=== PATIENT | male | born 1985 ===

== ENCOUNTER 2016-07-19 10:54 | Day surgery (SDC) | payer SELFPAY ==
[2016-07-12 11:30] VITALS: BMI 27.4
[2016-07-19 11:32] VITALS: RESP 18
--- NOTE | 2016-07-19 11:59 | CP.SDSHP ---
Same Day Surgery H & P - History Proposed Procedure: Right Inguinal Hernia Repair, With Mesh Pre-Op Diagnosis: Right Inguinal Hernia - Previous Medical/Surgical History Pain: 2.Mild Pain Previous Surgical History: none - Allergies Allergies: Allergies No Known Allergies Allergy (Verified 05/17/16 18:20) - Physical Exam General Appearance: well nourished, nad Vital Signs: Vital Signs 07/19/16 07/19/16 11:30 11:34 Temperature 97.8 F Pulse Rate 65 65 Respiratory 18 Rate Blood Pressure 126/73 O2 Sat by Pulse 100 Oximetry Mental Status: Alert & Oriented x3 Neuro: WNL Heart: WNL Lungs: WNL GI: WNL - {Optional Preform as Required} Abdomen: Other (R inguinal hernia, reducible) - Impression Impression: 31yo M w/ Right inguinal hernia for repair today Pt. Evaluated Today:Candidate for Anesthesia & Procedure: Yes - Date & Time Date: 07/19/16 Time: 11:59 Short Stay Discharge - Short Stay Discharge Admitting Diagnosis/Reason for Visit: K40.90 Disposition: HOME/ ROUTINE Medications: oxyCODONE/Acetaminophen [Percocet 5/325 mg Tab] 1 ea PO Q4H PRN #20 tab PRN Reason: Pain, Moderate (4-7) Referrals: FAMILY PROVIDER,NO [Primary Care Provider] - Follow-up: F/U with Dr. Goodman in 1 week. Additional Instructions (Diet, Activity): You may remove dressing on Saturday and you may shower. Leave Steristrips in place. No bathing or soaking in pool/ocean. No heavy lifting >10lbs for at least 4 weeks. F/U with Dr. Goodman in office in 1 week.
[2016-07-19] MEDS ORDERED: Propofol 10 mg/ml Inj (20 ML) ONE (13:08)
[2016-07-19] MEDS ORDERED: Midazolam 2 MG/2 ML VIAL ONE (13:09)
[2016-07-19] MEDS ORDERED: Lactated Ringer's 1,000 ML IV ONE (13:20)
[2016-07-19] MEDS: HYDROmorphone 0.5 mg/0.5 ml ISec IVP PRN ×2 (15:05→15:15)
[2016-07-19] MEDS ORDERED: HYDROmorphone 0.5 mg/0.5 ml ISec IVP ONE (15:30)
[2016-07-19] MEDS ORDERED: Oxycodone/Acetaminophen 5/325 mg Tab PO PRN (16:03)
[2016-07-19] MEDS ORDERED: Oxycodone/Acetaminophen 5/325 mg Tab PO ONE ×3 (17:25→19:00)
[2016-07-19 19:04] VITALS: BP 113/68; PULSE 68; TEMP 98.6; O2SAT 99
--- NOTE | 2016-07-20 09:44 | PCM.SURG1 ---
Surgeon's Initial Post Op Note - Surgeon's Notes Surgeon: Willow Goodman Woodworker Helper: Latoya Napoles Pre-Operative Diagnosis: Right inguinal hernia Operative Findings: indirect hernia sac, thinning of floor Post-Operative Diagnosis: Right inguinal hernia Operation Performed: Right inguinal hernia repair with mesh Specimen/Specimens Removed: hernia sac Estimated Blood Loss: EBL {In ML}: 5 Blood Products Given: N/A Drains Used: No Drains Post-Op Condition: Good Date of Surgery/Procedure: 07/19/16 Time of Surgery/Procedure: 13:00
--- NOTE | 2016-07-20 11:51 | OP ---
PROCEDURE DATE: 07/19/2016 SURGEON: Dr. Goodman. ONCOLOGY REP: Dr. Napoles. ANESTHESIA: General. PREOPERATIVE DIAGNOSIS: Right inguinal hernia. POSTOPERATIVE DIAGNOSIS: Right inguinal hernia. PROCEDURE: Right inguinal hernia repair with mesh. DESCRIPTION OF OPERATION: With the patient in the supine position under adequate general anesthesia, the abdomen was prepped and draped in the usual sterile manner. A transverse incision was made in the right lower groin crease , taken down through the subcutaneous tissue and the external oblique layer was identified. The external oblique layer was incised and opened parallel to its fibers from the external inguinal ring to the internal inguinal ring. The spermatic cord was identified and dissected as it passed over the pubic tubercle and elevated over a [place] drain. Dissection of the spermatic cord identified an indirect hernia sac which was freed from the underlying cord structures and dissected back to the level of the internal inguinal ring. The sac was opened. There were no incarcerated contents. The sac was suture ligated with a 2-0 Vicryl suture. It was noted that there was possible varicocele formation of the cord which left it somewhat thickened. The inguinal floor was palpated and there was noted to be marked thinning with a defect medial to the internal inguinal ring. A medium ProLoop plug was placed medial to the ring and sutured beneath the transversalis fascia, which was actually closed over the plug with Vicryl sutures. The flat portion patch portion of the mesh was then trimmed to approximate the inguinal floor and using 2-0 Prolene interrupted sutures the patch was sutured beneath the spermatic cord inferiorly to the shelving edge of the inguinal ligament and superiorly to the tendinous portion of the transversalis fascia. The repair began medially at the pubic tubercle and continued laterally beyond the internal inguinal ring and the spermatic cord. When this had been completed, the external oblique was reapproximated over the cord with a running suture of 2 -0 Vicryl. Subcutaneous tissue was approximated with 3-0 Vicryl interrupted sutures and closure was performed with running subcuticular suture of 4-0 Monocryl and Steri-Strips. Dry sterile dressing was applied. The patient tolerated the procedure well and transferred to recovery room in stable condition. Estimated blood loss for the procedure was 5 mL. Audrey Goodman MD cc: [id number] TT: 07/20/2016 11:50:18 jn MTDD
== END 2016-07-19 19:30 | disposition home or self-care (01) ==
LOC: H.OPSURG 10:54
PROVIDERS: ATTEND Specialist
DX: K40.90 Unilateral inguinal hernia, without obstruction or gangrene, not specified as recurrent (principal); J45.909 Unspecified asthma, uncomplicated